=== PATIENT | female | born 1990 | race Caucasian/White ===

== ENCOUNTER 2022-12-27 05:53 | Day surgery (SDC) | payer OTHER ==
[~2022-12-27] VITALS: Ht 167.6 cm; Wt 74.2 kg
[2022-12-27] MEDS ORDERED: WELLBUTRIN XL150 MG PO (06:26)
[2022-12-27] MEDS ORDERED: DESYREL 50MG50 MG PO (06:26)
[2022-12-27] MEDS ORDERED: ALDACTONE50 MG PO (06:26)
[2022-12-27] MEDS ORDERED: VALTREX1 GM PO (06:27)
[2022-12-27] MEDS ORDERED: AVIANE 0.02 MG-1 TAB PO (06:27)
[2022-12-27 07:35] VITALS: BP 102/83; PULSE 72; TEMP 97.3
--- NOTE | 2022-12-27 07:35 | NUR ---
PATIENT AMBULATED TO BAY 1 WITH STANDBY ASSISTANCE, GAIT STEADY. PATIENT ALERT AND ORIENTED, DENIES PAIN AND NAUSEA. BREATHING REGULAR AND UNLABORED. NURSE HANDOFF COMPLETED IN ROOM. SEE CHART FOR VITAL SIGNS. PATIENT HAD APPLE JUICE AND A MUFFIN, BOTH TOLERATED WELL. MET WITH PATIENT AT 0741 TO DISCUSS PROCEDURE. CALL LIGHT IN REACH.
[2022-12-27 07:45] VITALS: BP 120/85; PULSE 76
[2022-12-27 08:00] VITALS: BP 118/82; PULSE 74
--- NOTE | 2022-12-27 08:12 | NUR ---
PATIENT DENIES PAIN AND NAUSEA, TOLERATING FOOD AND DRINK. DISCHARGE TEACHING COMPLETED WITH PRINTED EDUCATION AND INSTRUCTIONS SENT HOME WITH PATIENT. BOTH PATIENT AND MICHELLE (PATIENTS MOTHER) VERBALIZED UNDERSTANDING. RIGHT HAND IV REMOVED. PATIENT CHANGED INTO PERSONAL CLOTHING AND DISCHARGED HOME WITH [facility].
[2022-12-27 08:18] VITALS: BP 118/87; PULSE 92; TEMP 97.6
== END 2022-12-27 08:12 | disposition home or self-care (01) ==
LOC: SDCO 05:53
DX: Z12.11 Encounter for screening for malignant neoplasm of colon (principal); Z80.0 Family history of malignant neoplasm of digestive organs
CPT/HCPCS: J2704; J7120